=== PATIENT | female | born 1990 | race Caucasian/White ===

== ENCOUNTER 2021-02-07 17:51 | Inpatient (IN) ==
[2021-02-07] MEDS ORDERED: OXYTOCIN 30 UNITS/500 ML BAG IV PRN (18:24)
[2021-02-07 19:14] LABS: Hematocrit (blood only) 33.1 % (37-47); Hemoglobin 11.3 g/dL (12.0-16.0); Mean Corpuscular Hemoglobin 33.6 pg (25-34); Mean Corpuscular Hgb Conc 34.1 g/dL (32-36); Mean Corpuscular Volume 98.5 fL (80-100); Mean Platelet Volume 8.6 fL (7.4-10.4); Platelet Count 252 K/uL (130-400); RDW Coefficient of Variation 14.2 % (11.5-14.5); RDW Standard Deviation 50.4 fL (36.4-46.3); Red Blood Count 3.36 M/uL (4.2-5.4); White Blood Count 11.98 K/uL (4.8-10.8)
[2021-02-07] MEDS ORDERED: DINOPROSTONE 10 MG INSERT PV ONE (21:00)
--- NOTE | 2021-02-07 21:16 | History & Physical Report ---
Date of Service February 07, 2021 Assessment & Plan (1) Oligohydramnios in third trimester: Plan: Cervidil for ripening Admission and Anticipated Discharge Date Admission Date: February 07, 2021 History of Present Illness Chief Complaint: induction of labor for oligohydramnios Primary Care Provider: Nasreen Friedman, 30 F P0000 at 39.4 weeks admitted to L&D after having ultrasound in office for growth and noting oligohydramnios. Growth determined to be adequate. GBS is negative. Covid is negative. Allergies Allergy/AdvReac Type Severity Reaction Status Date / Time erythromycin base AdvReac Mild Vomiting Verified 02/07/21 18:51 Home Medications Medication Instructions Recorded Confirmed Type ferrous sulfate 325 mg (65 mg 325 mg PO DAILY 02/07/21 02/07/21 History iron) tablet (Iron (ferrous sulfate)) prenat.vits,shakir,[id number] 1 tab PO DAILY 02/07/21 02/07/21 History vitamin B12 500 mcg-folic acid 400 1 tab PO DAILY 02/07/21 02/07/21 History mcg tablet Patient History Medical History Anxiety Iron deficiency anemia Surgical History H/O wisdom tooth extraction Social History Smoking Status: Former smoker Smoking End Date: 2014; Hx Alcohol Use: No Hx Substance Use: No Preferred Language: Mongolian Communication Ability: Effective Residential Finish Carpenter Required: No Beliefs That Will Affect Care: None marital status: Single Current Living Situation: Spouse Other Information That Helps Us Care for You: No Feels Safe at Home: Yes Safety Concerns: Feels Safe At This Time Assistive Devices: None OB History primigravida ARCHITECT INTERN History neg Review of Systems All systems reviewed & are unremarkable except as noted in HPI & below Physical Exam Constitutional: WD/WN, vitals as above comfortable Eyes: PERRL, conjunctivae normal, anicteric sclerae Respiratory: normal respiratory effort, lungs clear to auscultation Cardiovascular: RRR, no murmur, no edema Neurologic: patellar DTR's 2+ bilat, sensation intact Psychiatric: A+Ox3, euthymic affect Genitourinary: no vaginal lesions, no adnexal mass normal external appearance Manual OB Exam: + cervical dilation 1 cm, + cervical effacement 50% and + station high OB Exam Monitor Tracing: + external FHT monitor used, + external uterine monitor used, + category I and + normal FHT variability Cervidil 10 mg placed vaginal for cervical ripening Results & Data ([facility]) Vital Signs (Past 12 Hours) Vital Signs Temp Pulse Resp BP 02/07/21 19:18 36.8 C 82 18 114/60 02/07/21 18:48 37 C 16 02/07/21 18:05 102 H 121/68 Laboratory Results 02/07/21 02/07/21 18:05 18:59 WBC 11.98 H RBC 3.36 L Hgb 11.3 L Hct 33.1 L MCV 98.5 MCH 33.6 MCHC 34.1 RDW Std Deviation 50.4 H RDW Coeff of Livia 14.2 Plt Count 252 MPV 8.6 SARS-CoV-2, RNA, NAAT NEGATIVE
[2021-02-08] MEDS ORDERED: OXYTOCIN 30 UNITS/500 ML BAG IV PRN (08:31)
[2021-02-08] MEDS ORDERED: BUTORPHANOL TARTRATE 1 MG/ML VIAL IV PRN (08:36)
--- NOTE | 2021-02-08 08:36 | Obstetrical Progress Note ---
Date of Service February 08, 2021 Assessment & Plan Admission and Anticipated Discharge Date Admission Date: February 07, 2021 Subjective Patient is seen and examined. Reviewed her records and confirmed with her. She was admitted by Dr. Cervantes last night for oligohydramnios at term. Ultrasound showed estimated weight of 7 pounds 2 ounces and CARMEN of 2 cm. Patient denies leaking or trickling of fluids. Patient denies any medical problems, surgeries, smoking alcohol or drug use. She denies history of STDs including chlamydia, gonorrhea, herpes. GBS negative. She received Cervidil last night and has been porsche every 2 to 4 minutes, some more painful most are not. She ate breakfast this morning. Vital signs stable afebrile, heart rate reassuring, Vaginal exam, Cervidil was at the lower vagina, removed cervix is 2 cm, 30% effaced, posterior, head at -3 station. Discussed the findings and continue with induction of labor with low-dose Pitocin per protocol to augment current contractions. She understands all and agrees with plan, All questions were answered. Results & Data ([facility]) Vital Signs (Past 12 Hours) Vital Signs Temp Pulse Resp BP 02/08/21 08:04 74 117/68 02/08/21 03:22 36.8 C 71 18 98/53 L 02/07/21 23:04 78 110/61
[2021-02-08] MEDS: LACTATED RINGER'S 1,000 ML IV PRN ×3 (09:06→20:51)
[2021-02-08] MEDS ORDERED: BUPIVACAINE 0.25% 30 ML VIAL ONE ×2 (11:30→19:03)
[2021-02-08] MEDS ORDERED: ePHEDrine sulfate 50 MG/ML AMP ONE (11:30)
[2021-02-08] MEDS ORDERED: SODIUM CHLORIDE 0.9% INJ 10 ML VIAL ONE ×2 (11:30→19:11)
[2021-02-08] MEDS ORDERED: fentaNYL citrate 100 MCG/2 ML VIAL ONE (11:30)
[2021-02-08] MEDS ORDERED: fentaNYL 2MCG/ML ROPIVACAINE 1.25MG/ML 100 ML BAG EPI ONE (11:31)
[2021-02-08] MEDS ORDERED: ePHEDrine sulfate 50 MG/ML AMP IV PRN (12:03)
[2021-02-08] MEDS ORDERED: diphenhydrAMINE 50 MG/ML VIAL IV PRN (12:03)
[2021-02-08] MEDS ORDERED: ONDANSETRON INJ 2 MG/ML 2 ML VIAL IV PRN (12:03)
[2021-02-08] MEDS ORDERED: NALOXONE HCL 1 MG in SODIUM CHLORIDE 0.9% 1000ML 1,000 ML IV PRN (12:03)
[2021-02-08] MEDS ORDERED: NALOXONE HCL 0.4 MG/1 ML VIAL/CARP IV PRN (12:03)
[2021-02-08] MEDS ORDERED: NALBUPHINE HCL INJ 10 MG/ML AMP IV PRN (12:03)
--- NOTE | 2021-02-08 12:07 | Anesthesiology Consultation ---
Date of Service February 08, 2021 Assessment & Plan Chart Review Chart Review: Patient NOT seen in Pre Admission Testing and Acceptable Risk for Labor Epidural Consults Requested none ASA ASA2 Proposed Anesthesia Anesthesia Type: Labor Epidural and CSE Risk / Benefits Reviewed With: PT / POA / Parent / Guardian, Accepts Plan and Informed Consent Obtained History Height/Weight Height: 5 ft 7 in Weight: 69.4 kg Allergies Allergy/AdvReac Type Severity Reaction Status Date / Time erythromycin base AdvReac Mild Vomiting Verified 02/07/21 18:51 Medications Home Medications Medication Instructions Recorded Confirmed Last Taken ferrous sulfate 325 mg (65 mg 325 mg PO DAILY 02/07/21 02/07/21 02/07/21 iron) tablet (Iron (ferrous sulfate)) prenat.vits,shakir,[id number] 1 tab PO DAILY 02/07/21 02/07/21 02/07/21 vitamin B12 500 mcg-folic acid 400 1 tab PO DAILY 02/07/21 02/07/21 02/07/21 mcg tablet Active Medications Generic Name Dose Route Start Last Admin Trade Name Freq PRN Reason Stop Dose Admin Lactated Ringer's 1,000 mls @ 125 mls/hr 02/07/21 18:24 02/08/21 11:58 Lr IV 02/09/21 18:23 125 mls/hr .Q8H PRN Infusion L&D Protocol Protocol Oxytocin 30 units in 500 mls @ 4 mls/hr 02/08/21 08:31 02/08/21 10:10 Pitocin IV 02/10/21 08:30 0.24 units/hr .Q24H PRN 4 mls/hr Labor Induction/Augmentation Titration Protocol 0.24 UNITS/HR NPO Date Last Intake of Fluids: 02/08/21 Time Last Intake of Fluids: 11:30 Date Last Intake of Solids: 02/08/21 Time Last Intake of Solids: 08:00 Past Medical History Medical History Anxiety Iron deficiency anemia Exercise / Class Metabolic Activity II 4-5 Yardwork/Stairs/Walk up hill Past Surgical History Surgical History H/O wisdom tooth extraction Past Anesthesia History No Hx of Anesthesia Complications and No Family Hx of Anesthesia Complications History of PONV No Hx of PONV and No Hx of Motion Sickness Social History Smoking Status: Former smoker Smoking End Date: 2014 Hx Alcohol Use: No Hx Substance Use: No substance use type: does not use Review of Systems no chest pain or sob Physical Exam Vital Signs Last Vital Signs Temp 36.8 C 02/08/21 03:22 Pulse 83 02/08/21 12:04 Resp 18 02/08/21 03:22 BP 119/72 02/08/21 11:57 Pulse Ox 98 02/08/21 12:04 ENMT Mouth: no TMJ abnormality Thyromental Distance: > or= 3.5 Finger Breadths Mallampati Class: II Neck normal visual inspection Respiratory normal respiratory effort Auscultation: lungs clear to auscultation bilaterally Cardiovascular Rate/Rhythm: regular rate and regular rhythm Musculoskeletal Spine: normal cervical ROM Neurologic moves all extremities Psychiatric Orientation: alert and oriented x 3 Testing Laboratory Results 02/07/21 18:59
[2021-02-08] MEDS: fentaNYL 2MCG/ML ROPIVACAINE 1.25MG/ML 100 ML BAG EPI PRN ×2 (12:31→19:15)
--- NOTE | 2021-02-08 13:23 | Obstetrical Progress Note ---
Date of Service February 08, 2021 Assessment & Plan Admission and Anticipated Discharge Date Admission Date: February 07, 2021 Subjective Patient is reevaluated. She received epidural for pain Pitocin was started around 9 AM and is at 4 mIU/min. Vital signs stable afebrile, heart rate category 1, [place] with contractions every 3 to 4 minutes, Vaginal exam, cervix is unchanged 2 centimeters, 30% effaced, -3 station and posterior. Continue to monitor closely and increase Pitocin. Results & Data ([facility]) Vital Signs (Past 12 Hours) Vital Signs Temp Pulse Resp BP Pulse Ox 02/08/21 13:19 73 96 02/08/21 13:14 81 97 02/08/21 13:09 75 97 02/08/21 13:05 77 115/60 02/08/21 13:04 89 97 02/08/21 12:59 79 99 02/08/21 12:54 85 96 02/08/21 12:50 82 92 02/08/21 12:49 84 96 02/08/21 12:45 77 115/62 02/08/21 12:44 82 97 02/08/21 12:40 82 120/70 02/08/21 12:39 86 96 02/08/21 12:34 90 98 02/08/21 12:33 36.6 C 86 20 119/64 02/08/21 12:31 87 115/66 02/08/21 12:29 83 118/64 96 02/08/21 12:28 84 118/64 02/08/21 12:26 83 101/73 02/08/21 12:24 76 97 02/08/21 12:23 78 119/76 02/08/21 12:19 94 H 97 02/08/21 12:14 81 97 02/08/21 12:09 83 99 02/08/21 12:04 83 98 02/08/21 11:59 77 100 02/08/21 11:57 72 119/72 02/08/21 11:54 74 99 02/08/21 11:49 71 98 02/08/21 11:44 74 99 02/08/21 11:39 71 99 02/08/21 11:34 76 100 02/08/21 08:04 74 117/68 02/08/21 03:22 36.8 C 71 18 98/53 L
--- NOTE | 2021-02-08 18:48 | Obstetrical Progress Note ---
Date of Service February 08, 2021 Assessment & Plan Admission and Anticipated Discharge Date Admission Date: February 07, 2021 Subjective Late entry from 2:30 PM. Patient is reevaluated she felt leakage of fluid on her perineum. Perineum is moist with clear fluid. Cervix is 3 to 4 cm dilated 50% effaced -2 with a tight tnin bag of amniotic membranes, attempted AROM and obtained small amount of clear fluid. FHR categ I Continue to monitor closely. Results & Data ([facility]) Vital Signs (Past 12 Hours) Vital Signs Temp Pulse Resp BP Pulse Ox 02/08/21 18:39 84 98 02/08/21 18:35 74 111/66 02/08/21 18:34 79 98 02/08/21 18:29 77 98 02/08/21 18:24 77 98 02/08/21 18:21 74 115/64 02/08/21 18:19 80 98 02/08/21 18:14 77 97 02/08/21 18:09 78 98 02/08/21 18:06 75 117/64 02/08/21 18:04 79 98 02/08/21 17:59 74 99 02/08/21 17:54 77 99 02/08/21 17:50 73 123/56 L 02/08/21 17:49 75 99 02/08/21 17:44 75 99 02/08/21 17:39 74 99 02/08/21 17:34 73 97 02/08/21 17:29 74 98 02/08/21 17:24 73 97 02/08/21 17:22 72 120/58 L 02/08/21 17:19 72 97 02/08/21 17:14 74 97 02/08/21 17:09 73 97 02/08/21 17:06 69 111/55 L 02/08/21 17:04 72 97 02/08/21 16:59 69 98 02/08/21 16:54 73 97 02/08/21 16:50 68 106/55 L 02/08/21 16:49 75 98 02/08/21 16:44 71 96 02/08/21 16:39 71 96 02/08/21 16:35 68 109/56 L 02/08/21 16:34 70 96 02/08/21 16:29 73 97 02/08/21 16:24 79 97 02/08/21 16:20 68 103/58 L 02/08/21 16:19 71 97 02/08/21 16:14 75 97 02/08/21 16:12 37.0 C 18 02/08/21 16:09 70 98 02/08/21 16:05 75 116/69 02/08/21 16:04 73 98 02/08/21 15:59 75 98 02/08/21 15:54 74 98 02/08/21 15:50 68 107/57 L 02/08/21 15:49 72 97 02/08/21 15:44 75 98 02/08/21 15:39 79 98 02/08/21 15:36 73 111/61 02/08/21 15:34 79 97 02/08/21 15:29 77 98 02/08/21 15:24 77 97 02/08/21 15:21 78 110/61 02/08/21 15:19 75 98 02/08/21 15:14 74 97 02/08/21 15:09 71 98 02/08/21 15:06 73 111/61 02/08/21 15:04 74 97 02/08/21 14:59 75 98 02/08/21 14:54 71 98 02/08/21 14:50 73 113/63 02/08/21 14:49 73 98 02/08/21 14:44 78 97 02/08/21 14:39 75 97 02/08/21 14:36 80 113/63 02/08/21 14:34 83 98 02/08/21 14:29 77 97 02/08/21 14:24 75 97 02/08/21 14:20 70 110/59 L 02/08/21 14:19 73 95 02/08/21 14:14 71 96 02/08/21 14:09 71 96 02/08/21 14:06 66 107/58 L 02/08/21 14:04 69 96 02/08/21 13:59 72 96 02/08/21 13:54 79 98 02/08/21 13:51 67 100/55 L 02/08/21 13:49 86 98 02/08/21 13:44 67 96 02/08/21 13:39 77 97 02/08/21 13:35 71 97/54 L 02/08/21 13:34 82 98 02/08/21 13:29 76 97 02/08/21 13:24 80 97 02/08/21 13:21 70 111/62 02/08/21 13:19 73 96 02/08/21 13:14 81 97 02/08/21 13:09 75 97 02/08/21 13:05 77 115/60 02/08/21 13:04 89 97 02/08/21 12:59 79 99 02/08/21 12:54 85 96 02/08/21 12:50 82 92 02/08/21 12:49 84 96 02/08/21 12:45 77 115/62 02/08/21 12:44 82 97 02/08/21 12:40 82 120/70 02/08/21 12:39 86 96 02/08/21 12:34 90 98 02/08/21 12:33 36.6 C 86 20 119/64 02/08/21 12:31 87 115/66 02/08/21 12:29 83 118/64 96 02/08/21 12:28 84 118/64 02/08/21 12:26 83 101/73 02/08/21 12:24 76 97 02/08/21 12:23 78 119/76 02/08/21 12:19 94 H 97 02/08/21 12:14 81 97 02/08/21 12:09 83 99 02/08/21 12:04 83 98 02/08/21 11:59 77 100 02/08/21 11:57 72 119/72 02/08/21 11:54 74 99 02/08/21 11:49 71 98 02/08/21 11:44 74 99 02/08/21 11:39 71 99 02/08/21 11:34 76 100 02/08/21 08:04 74 117/68
--- NOTE | 2021-02-08 18:49 | Obstetrical Progress Note ---
Date of Service February 08, 2021 Assessment & Plan Admission and Anticipated Discharge Date Admission Date: February 07, 2021 Subjective Late entry from 6:15 PM. Patient is reevaluated. She felt pressure and was checked by her nurse at 6 PM and her cervix was 6 to 7 cm dilated, 90% effaced and -1 per her. Patient has been pushing her buttons and declines pain. heart rate category 1, Continue to monitor closely. Results & Data ([facility]) Vital Signs (Past 12 Hours) Vital Signs Temp Pulse Resp BP Pulse Ox 02/08/21 18:44 74 100 02/08/21 18:39 84 98 02/08/21 18:35 74 111/66 02/08/21 18:34 79 98 02/08/21 18:29 77 98 02/08/21 18:24 77 98 02/08/21 18:21 74 115/64 02/08/21 18:19 80 98 02/08/21 18:14 77 97 02/08/21 18:09 78 98 02/08/21 18:06 75 117/64 02/08/21 18:04 79 98 02/08/21 17:59 74 99 02/08/21 17:54 77 99 02/08/21 17:50 73 123/56 L 02/08/21 17:49 75 99 02/08/21 17:44 75 99 02/08/21 17:39 74 99 02/08/21 17:34 73 97 02/08/21 17:29 74 98 02/08/21 17:24 73 97 02/08/21 17:22 72 120/58 L 02/08/21 17:19 72 97 02/08/21 17:14 74 97 02/08/21 17:09 73 97 02/08/21 17:06 69 111/55 L 02/08/21 17:04 72 97 02/08/21 16:59 69 98 02/08/21 16:54 73 97 02/08/21 16:50 68 106/55 L 02/08/21 16:49 75 98 02/08/21 16:44 71 96 02/08/21 16:39 71 96 02/08/21 16:35 68 109/56 L 02/08/21 16:34 70 96 02/08/21 16:29 73 97 02/08/21 16:24 79 97 02/08/21 16:20 68 103/58 L 02/08/21 16:19 71 97 02/08/21 16:14 75 97 02/08/21 16:12 37.0 C 18 02/08/21 16:09 70 98 02/08/21 16:05 75 116/69 02/08/21 16:04 73 98 02/08/21 15:59 75 98 02/08/21 15:54 74 98 02/08/21 15:50 68 107/57 L 02/08/21 15:49 72 97 02/08/21 15:44 75 98 02/08/21 15:39 79 98 02/08/21 15:36 73 111/61 02/08/21 15:34 79 97 02/08/21 15:29 77 98 02/08/21 15:24 77 97 02/08/21 15:21 78 110/61 02/08/21 15:19 75 98 02/08/21 15:14 74 97 02/08/21 15:09 71 98 02/08/21 15:06 73 111/61 02/08/21 15:04 74 97 02/08/21 14:59 75 98 02/08/21 14:54 71 98 02/08/21 14:50 73 113/63 02/08/21 14:49 73 98 02/08/21 14:44 78 97 02/08/21 14:39 75 97 02/08/21 14:36 80 113/63 02/08/21 14:34 83 98 02/08/21 14:29 77 97 02/08/21 14:24 75 97 02/08/21 14:20 70 110/59 L 02/08/21 14:19 73 95 02/08/21 14:14 71 96 02/08/21 14:09 71 96 02/08/21 14:06 66 107/58 L 02/08/21 14:04 69 96 02/08/21 13:59 72 96 02/08/21 13:54 79 98 02/08/21 13:51 67 100/55 L 02/08/21 13:49 86 98 02/08/21 13:44 67 96 02/08/21 13:39 77 97 02/08/21 13:35 71 97/54 L 02/08/21 13:34 82 98 02/08/21 13:29 76 97 02/08/21 13:24 80 97 02/08/21 13:21 70 111/62 02/08/21 13:19 73 96 02/08/21 13:14 81 97 02/08/21 13:09 75 97 02/08/21 13:05 77 115/60 02/08/21 13:04 89 97 02/08/21 12:59 79 99 02/08/21 12:54 85 96 02/08/21 12:50 82 92 02/08/21 12:49 84 96 02/08/21 12:45 77 115/62 02/08/21 12:44 82 97 02/08/21 12:40 82 120/70 02/08/21 12:39 86 96 02/08/21 12:34 90 98 02/08/21 12:33 36.6 C 86 20 119/64 02/08/21 12:31 87 115/66 02/08/21 12:29 83 118/64 96 02/08/21 12:28 84 118/64 02/08/21 12:26 83 101/73 02/08/21 12:24 76 97 02/08/21 12:23 78 119/76 02/08/21 12:19 94 H 97 02/08/21 12:14 81 97 02/08/21 12:09 83 99 02/08/21 12:04 83 98 02/08/21 11:59 77 100 02/08/21 11:57 72 119/72 02/08/21 11:54 74 99 02/08/21 11:49 71 98 02/08/21 11:44 74 99 02/08/21 11:39 71 99 02/08/21 11:34 76 100 02/08/21 08:04 74 117/68
--- NOTE | 2021-02-08 23:00 | Obstetrical Progress Note ---
Date of Service February 08, 2021 Assessment & Plan Admission and Anticipated Discharge Date Admission Date: February 07, 2021 Subjective Patient is reevaluated. She felt pressure and found to be fully dilated and desire to push. Had is at +2 station, small caput visible at the introitus with pushes. heart rate category 1. Continue to monitor closely and pushing. Anticipate . Results & Data ([facility]) Vital Signs (Past 12 Hours) Vital Signs Temp Pulse Resp BP Pulse Ox 02/08/21 22:54 82 96 02/08/21 22:51 106 H 134/76 02/08/21 22:49 114 H 97 02/08/21 22:44 113 H 98 02/08/21 22:39 108 H 97 02/08/21 22:36 131 H 139/81 02/08/21 22:34 102 H 98 02/08/21 22:29 89 98 02/08/21 22:24 96 H 99 02/08/21 22:20 86 118/69 02/08/21 22:19 92 H 98 02/08/21 22:14 90 99 02/08/21 22:09 91 H 98 02/08/21 22:06 91 H 116/68 02/08/21 22:05 37.2 C 91 H 18 126/71 02/08/21 22:04 85 98 02/08/21 22:03 86 86 L 02/08/21 21:59 88 98 02/08/21 21:54 82 97 02/08/21 21:50 87 111/64 02/08/21 21:49 85 96 02/08/21 21:44 88 96 02/08/21 21:39 83 98 02/08/21 21:35 86 113/66 02/08/21 21:34 83 98 02/08/21 21:32 18 02/08/21 21:29 81 98 02/08/21 21:24 86 98 02/08/21 21:20 90 121/72 02/08/21 21:19 84 99 02/08/21 21:14 94 H 99 02/08/21 21:09 85 98 02/08/21 21:08 37.2 C 02/08/21 21:05 83 113/68 02/08/21 21:04 85 97 02/08/21 21:01 18 02/08/21 20:59 83 97 02/08/21 20:54 80 97 02/08/21 20:50 86 109/67 02/08/21 20:49 81 97 02/08/21 20:44 81 98 02/08/21 20:39 80 97 02/08/21 20:35 82 112/67 02/08/21 20:34 79 99 02/08/21 20:29 80 98 02/08/21 20:24 78 100 02/08/21 20:20 77 109/66 02/08/21 20:19 82 99 02/08/21 20:14 81 98 02/08/21 20:09 79 98 02/08/21 20:05 93 H 114/65 02/08/21 20:04 98 H 99 02/08/21 19:59 92 H 98 02/08/21 19:54 79 97 02/08/21 19:50 88 106/63 02/08/21 19:49 85 97 02/08/21 19:44 92 H 97 02/08/21 19:39 84 98 02/08/21 19:35 85 121/68 02/08/21 19:34 88 98 02/08/21 19:29 90 98 02/08/21 19:24 84 97 02/08/21 19:22 105 H 145/69 H 02/08/21 19:19 108 H 99 02/08/21 19:14 87 98 02/08/21 19:09 84 98 02/08/21 19:05 81 108/64 02/08/21 19:04 78 96 02/08/21 19:01 18 02/08/21 19:00 37.2 C 18 02/08/21 18:59 82 99 02/08/21 18:54 82 98 02/08/21 18:50 85 112/69 02/08/21 18:49 79 98 02/08/21 18:44 74 100 02/08/21 18:39 84 98 02/08/21 18:35 74 111/66 02/08/21 18:34 79 98 02/08/21 18:29 77 98 02/08/21 18:24 77 98 02/08/21 18:21 74 115/64 02/08/21 18:19 80 98 02/08/21 18:14 77 97 02/08/21 18:09 78 98 02/08/21 18:06 75 117/64 02/08/21 18:04 79 98 02/08/21 17:59 74 99 02/08/21 17:54 77 99 02/08/21 17:50 73 123/56 L 02/08/21 17:49 75 99 02/08/21 17:44 75 99 02/08/21 17:39 74 99 02/08/21 17:34 73 97 02/08/21 17:29 74 98 02/08/21 17:24 73 97 02/08/21 17:22 72 120/58 L 02/08/21 17:19 72 97 02/08/21 17:14 74 97 02/08/21 17:09 73 97 02/08/21 17:06 69 111/55 L 02/08/21 17:04 72 97 02/08/21 16:59 69 98 02/08/21 16:54 73 97 02/08/21 16:50 68 106/55 L 02/08/21 16:49 75 98 02/08/21 16:44 71 96 02/08/21 16:39 71 96 02/08/21 16:35 68 109/56 L 02/08/21 16:34 70 96 02/08/21 16:29 73 97 02/08/21 16:24 79 97 02/08/21 16:20 68 103/58 L 02/08/21 16:19 71 97 02/08/21 16:14 75 97 02/08/21 16:12 37.0 C 18 02/08/21 16:09 70 98 02/08/21 16:05 75 116/69 02/08/21 16:04 73 98 02/08/21 15:59 75 98 02/08/21 15:54 74 98 02/08/21 15:50 68 107/57 L 02/08/21 15:49 72 97 02/08/21 15:44 75 98 02/08/21 15:39 79 98 02/08/21 15:36 73 111/61 02/08/21 15:34 79 97 02/08/21 15:29 77 98 02/08/21 15:24 77 97 02/08/21 15:21 78 110/61 02/08/21 15:19 75 98 02/08/21 15:14 74 97 02/08/21 15:09 71 98 02/08/21 15:06 73 111/61 02/08/21 15:04 74 97 02/08/21 14:59 75 98 02/08/21 14:54 71 98 02/08/21 14:50 73 113/63 02/08/21 14:49 73 98 02/08/21 14:44 78 97 02/08/21 14:39 75 97 02/08/21 14:36 80 113/63 02/08/21 14:34 83 98 02/08/21 14:29 77 97 02/08/21 14:24 75 97 02/08/21 14:20 70 110/59 L 02/08/21 14:19 73 95 02/08/21 14:14 71 96 02/08/21 14:09 71 96 02/08/21 14:06 66 107/58 L 02/08/21 14:04 69 96 02/08/21 13:59 72 96 02/08/21 13:54 79 98 02/08/21 13:51 67 100/55 L 02/08/21 13:49 86 98 02/08/21 13:44 67 96 02/08/21 13:39 77 97 02/08/21 13:35 71 97/54 L 02/08/21 13:34 82 98 02/08/21 13:29 76 97 02/08/21 13:24 80 97 02/08/21 13:21 70 111/62 02/08/21 13:19 73 96 02/08/21 13:14 81 97 02/08/21 13:09 75 97 02/08/21 13:05 77 115/60 02/08/21 13:04 89 97 02/08/21 12:59 79 99 02/08/21 12:54 85 96 02/08/21 12:50 82 92 02/08/21 12:49 84 96 02/08/21 12:45 77 115/62 02/08/21 12:44 82 97 02/08/21 12:40 82 120/70 02/08/21 12:39 86 96 02/08/21 12:34 90 98 02/08/21 12:33 36.6 C 86 20 119/64 02/08/21 12:31 87 115/66 12/03/21 12:29 83 118/64 96 02/08/21 12:28 84 118/64 02/08/21 12:26 83 101/73 02/08/21 12:24 76 97 02/08/21 12:23 78 119/76 02/08/21 12:19 94 H 97 02/08/21 12:14 81 97 02/08/21 12:09 83 99 02/08/21 12:04 83 98 02/08/21 11:59 77 100 02/08/21 11:57 72 119/72 02/08/21 11:54 74 99 02/08/21 11:49 71 98 02/08/21 11:44 74 99 02/08/21 11:39 71 99 02/08/21 11:34 76 100
[2021-02-08] MEDS ORDERED: MINERAL OIL 30 ML UDC ONE (23:18)
[2021-02-08] MEDS ORDERED: LIDOCAINE 1% LOCAL 20 ML VIAL ONE (23:54)
[2021-02-09] MEDS ORDERED: OXYTOCIN 30 UNITS/500 ML BAG IV PRN (00:21)
[2021-02-09] MEDS ORDERED: ACETAMINOPHEN 325 MG TAB PO PRN (00:21)
[2021-02-09] MEDS ORDERED: oxyCODONE/ACETAMINOPHEN 5mg/325mg TAB PO PRN (00:21)
[2021-02-09] MEDS ORDERED: DIPHTHERIA/TETANUS/PERTUSSIS 0.5 ML SYR/VIAL IM ONE (00:21)
[2021-02-09] MEDS ORDERED: MEASLES, MUMPS & RUBELLA VIRUS VIAL SQ ONE (00:21)
[2021-02-09] MEDS ORDERED: HYDROCORTISONE ACETATE 25 MG SUPP PR PRN (00:21)
[2021-02-09] MEDS ORDERED: BENZOCAINE 20% AER SPR 82.5 GM CAN EXT PRN (00:21)
[2021-02-09] MEDS ORDERED: bisacodyL 10 MG SUPP PR PRN (00:21)
[2021-02-09] MEDS ORDERED: SUPERCREAM 0.870% 15 GM JAR EXT PRN (00:21)
--- NOTE | 2021-02-09 00:28 | Delivery Summary ---
Vaginal Delivery Summary Date of Service February 09, 2021 Vaginal Delivery Summary She was found to be fully dilated and desire to push. She pushed for about an hour and delivered the head without difficulty. There was a nuchal cord around the neck x1 which was reduced. Then the shoulders were delivered with minimal traction, baby was handed off to the mother that her mouth and nose were suctioned and cord was clamped x2 and cut. Baby was handed off to the waiting nursing team. Cord blood was obtained. The vagina and perineum were checked for lacerations. There were bilateral first-degree labial lacerations and a small first-degree vaginal laceration at 4 o'clock position at the hymenal ring. Those were repaired with 3-0 Vicryl in a running locked fashion. The vagina laceration was repaired with 2-0 Vicryl in a running fashion. Excellent hemostasis achieved. The rest of the vagina was intact. The placenta was found to be in the vagina, delivered spontaneously as complete and intact. Uterus was explored and found to be empty, lower segment was cleared of all clots and debris's, EBL was 200 mL and fundus was firm. IV oxytocin was started. Mom and baby tolerated procedure well, there was a viable female Apgars 8/9 and weight is pending. No complications happened, I was present during whole procedure. At the end of the procedure the sponge, needle and instrument count was correct x2.
--- NOTE | 2021-02-09 02:20 | Anesthesia Procedure Note ---
Date of Service February 09, 2021 Anesthesia Post Epidural Note Vital Signs Vital Signs: Temp Pulse Resp BP Pulse Ox 37.1 C 114 H 18 116/67 97 02/09/21 00:10 02/09/21 02:15 02/09/21 01:10 02/09/21 02:15 02/09/21 00:04 Notes Mental Status: alert / awake / arousable and participated in evaluation Nausea / Vomiting: adequately controlled Pain: adequately controlled Airway Patency, RR, SpO2: stable & adequate BP & HR: stable & adequate Hydration State: stable & adequate Neuraxial Anesthesia: was administered and sensory block is resolving Anesthetic Complications: no major complications apparent and Pt Satisfied with anesthetic care Epidural: Removed without complications and With tip intact
[2021-02-09] MEDS: IBUPROFEN 600 MG TAB PO PRN ×5 (02:35→23:27)
[2021-02-09] MEDS: DOCUSATE SODIUM 100 MG CAP PO SCH ×2 (09:00→20:11)
[2021-02-09] MEDS: FERROUS SULFATE 325 MG TAB PO SCH (09:00)
[2021-02-09] MEDS: PRENATAL VITAMIN 1 TAB PO SCH (09:00)
[2021-02-10] MEDS: IBUPROFEN 600 MG TAB PO PRN ×2 (04:36→08:48)
[2021-02-10] MEDS: DOCUSATE SODIUM 100 MG CAP PO SCH (07:56)
[2021-02-10] MEDS: FERROUS SULFATE 325 MG TAB PO SCH (07:56)
[2021-02-10] MEDS: PRENATAL VITAMIN 1 TAB PO SCH (07:56)
[2021-02-10 08:26] LABS: Hematocrit (blood only) 27.5 % (37-47); Mean Corpuscular Hemoglobin 33.1 pg (25-34); Mean Corpuscular Hgb Conc 32.7 g/dL (32-36); Mean Corpuscular Volume 101.1 fL (80-100); Mean Platelet Volume 8.4 fL (7.4-10.4); Platelet Count 217 K/uL (130-400); RDW Coefficient of Variation 14.6 % (11.5-14.5); RDW Standard Deviation 53.7 fL (36.4-46.3); Red Blood Count 2.72 M/uL (4.2-5.4); White Blood Count 14.22 K/uL (4.8-10.8)
--- NOTE | 2021-02-10 11:08 | Obstetrical Progress Note ---
Date of Service February 10, 2021 Assessment & Plan (1) Normal course: PPD #1 pt doing well d/c home with instructions Subjective Ambulation: ambulating normally Voiding: no voiding problems Passing Gas:: Yes Diet Tolerance:: regular diet Lochia:: Small Feeding Type:: breast feeding Review of Systems All systems reviewed & are unremarkable except as noted in HPI & below Physical Exam Constitutional WD/WN, vitals as above well developed and well nourished Eyes PERRL, conjunctivae normal, anicteric sclerae Neck trachea midline, no thyromegaly Respiratory normal respiratory effort, lungs clear to auscultation Auscultation: no crackles, no rales and no wheezes Cardiovascular RRR, no murmur, no edema Gastrointestinal (Abdomen) normal bowel sounds, soft, nontender, no hepatosplenomegaly Uterus is below umbilicus Musculoskeletal no cyanosis or clubbing, extremities motor strength 5/5 Skin no rashes, warm and dry Neurologic patellar DTR's 2+ bilat, sensation intact Psychiatric A+Ox3, euthymic affect Genitourinary normal external appearance Results & Data ([facility]) Vital Signs (Past 12 Hours) Vital Signs Temp Pulse Resp BP Pulse Ox 02/10/21 08:45 36.7 C 89 16 107/67 98 02/09/21 23:10 36.5 C 92 H 16 107/69 99
[2021-02-10] MEDS ORDERED: bisacodyL 5 MG TABEC PO SCH (20:00)
--- NOTE | 2021-02-15 14:11 | Discharge Summary (DS) ---
DATE OF DISCHARGE: 02/10/2021. HOSPITAL COURSE AND ADMISSION: The patient is a 30-year-old primigravida who was admitted on 021 after being seen in the office and had an CARMEN consistent with oligohydramnios. The patient had n ormal course. Growth was good. She was sent to the office for routine followup and then sen t to labor and delivery for induction of labor due to oligohydramnios at term. The patient is GBS ne gative. COVID was negative. The patient had a Cervidil that was placed. Subsequently, she was in l abor, had an epidural and delivered a viable female with Apgars 8 and 9. Homegoing instructio ns were given to the patient after discharge including regular diet. She was discharged on day #1, stable. DIET: Regular diet on discharge. DISCHARGE MEDICATION: Motrin for pain. Follow up will be in the office for visit. Job ID: [id number]
== END 2021-02-10 11:30 | disposition home or self-care (01) | DRG 807 ==
LOC: OPB 17:51 → 4S1 17:56 → 4S2 02-09 03:26